=== PATIENT | female | born 1945 | race Asian ===

== ENCOUNTER 2019-06-23 07:34 | Observation (INO) | payer MEDICARE ==
[2019-06-23] MEDS: CEFAZOLIN 2 GM/50 ML (PMX) 50 ML IVPB (06:00)
[2019-06-23] MEDS: LACTATED RINGER'S 1,000 ML IV (08:39)
[2019-06-23] MEDS ORDERED: ACETAMINOPHEN 325 MG TAB PO (09:30)
[2019-06-23] MEDS ORDERED: DIPHENHYDRAMINE 50 MG INJ IV (09:30)
[2019-06-23] MEDS: CEFAZOLIN 1 GM/50 ML (PMX) 50 ML IVPB ×2 (09:30→16:51)
[2019-06-23] MEDS ORDERED: ONDANSETRON 4 MG INJ IV ×2 (09:30→11:00)
[2019-06-23] MEDS ORDERED: HYDROmorphONE 0.5 MG/0.5 ML SYG IV (09:30)
[2019-06-23] MEDS ORDERED: HYDROCODONE/APAP (5/325) TAB PO (09:30)
[2019-06-23] MEDS ORDERED: DIPHENHYDRAMINE 25 MG CAP PO (09:30)
[2019-06-23] MEDS ORDERED: NALOXONE (0.4 MG/ML) INJ IV (09:30)
[2019-06-23] MEDS ORDERED: MAGNESIUM HYDROXIDE 30ML CUP PO (09:30)
[2019-06-23] MEDS ORDERED: CEPASTAT LOZENGE MT (09:30)
[2019-06-23] MEDS ORDERED: BISACODYL 10 MG SUPP PR (09:30)
[2019-06-23] MEDS ORDERED: SODIUM CL BACTERIOSTATIC 30 ML INJ (09:32)
[2019-06-23] MEDS ORDERED: SEVOFLURANE 15 MIN (09:45)
[2019-06-23] MEDS ORDERED: MEPERIDINE 100 MG INJ (09:47)
[2019-06-23] MEDS ORDERED: LIDOCAINE 2% (SDV) 5 ML INJ (09:47)
[2019-06-23] MEDS ORDERED: PROPOFOL 20 ML (09:47)
[2019-06-23] MEDS ORDERED: GLYCOPYRROLATE 0.4 MG INJ ×2 (09:47→10:48)
[2019-06-23] MEDS ORDERED: NEOSTIGMINE 3 MG/3 ML SYRINGE (09:47)
[2019-06-23] MEDS ORDERED: ROCURONIUM 50 MG INJ (09:47)
[2019-06-23] MEDS ORDERED: SUCCINYLCHOLINE CHLORIDE 100 MG/5 ML SYG IV (09:47)
[2019-06-23] MEDS ORDERED: METOCLOPRAMIDE 10 MG INJ (10:46)
[2019-06-23] MEDS ORDERED: ONDANSETRON 4 MG INJ (10:46)
[2019-06-23] MEDS ORDERED: MEPERIDINE 25 MG INJ IV (11:00)
[2019-06-23] MEDS ORDERED: MIDAZOLAM 1 MG/ML 2 ML INJ IV (11:00)
[2019-06-23] MEDS ORDERED: METOCLOPRAMIDE 10 MG INJ IV (11:00)
[2019-06-23] MEDS ORDERED: LABETALOL HCL 20MG INJ IV (11:00)
[2019-06-23] MEDS ORDERED: EPHEDrine 25 MG/5 ML SYG IV (11:00)
[2019-06-23] MEDS ORDERED: FENTAnyl 50 MCG/ML VIAL IV (11:00)
[2019-06-23] MEDS ORDERED: HYDROmorphONE 1 MG/5 ML IV SYRINGE IV ×3 (11:00)
[2019-06-23] MEDS ORDERED: hydrALAzine 20 MG INJ IV (11:00)
[2019-06-23] MEDS: GELATIN SIZE 100 SPONGE (11:11)
[2019-06-23] MEDS: CA CHLORIDE 10% 10 ML SYRINGE (11:11)
[2019-06-23] MEDS: BUPIVACAINE 0.5%/EPI (SDV) 30 ML INJ (11:11)
[2019-06-23] MEDS: HEPARIN 1000 UNITS/ML 10 ML INJ (11:12)
[2019-06-23] MEDS: THROMBIN 5000 UNIT (RECOTHROM) VIAL ×2 (11:12→12:14)
[2019-06-23] MEDS: POLYMYXIN/BACITRACIN 1L IRRIG (11:12)
[2019-06-23] MEDS ORDERED: CEFAZOLIN 1 GM INJ (12:16)
[2019-06-23] MEDS ORDERED: NALOXONE (0.4 MG/ML) INJ (12:44)
[2019-06-23] MEDS: FENTAnyl 50 MCG/ML VIAL IV ×3 (13:00→13:13)
[2019-06-23] MEDS: DIPHENHYDRAMINE 50 MG INJ IV (13:27)
[2019-06-23] MEDS: D5W-0.45 NACL + KCL 20 MEQ 1,000 ML IV ×2 (15:02→18:54)
[2019-06-23] MEDS ORDERED: PREGABALIN 25 MG CAP PO (21:00)
[2019-06-23] MEDS: DOCUSATE SODIUM 100 MG CAP PO (21:32)
[2019-06-24] MEDS: CEFAZOLIN 1 GM/50 ML (PMX) 50 ML IVPB ×2 (01:30→01:40)
[2019-06-24] MEDS: D5W-0.45 NACL + KCL 20 MEQ 1,000 ML IV (03:20)
[2019-06-24 04:59] LABS: ADD MAN DIFF? NO
[2019-06-24 05:10] LABS: WHITE BLOOD COUNT 9.6 10^3/ul (4.8-10.8)
[2019-06-24 05:10] LABS: BASOPHILS % 0.3 % (0.0-2.0); EOSINOPHILS # 0.1 10^3/ul (0.0-0.5); EOSINOPHILS % 0.7 % (0.0-7.0); HEMATOCRIT 35.6 % (37.0-47.0); HEMOGLOBIN 11.5 g/dl (12.0-16.0); LYMPHOCYTES # 0.8 10^3/ul (0.8-2.9); LYMPHOCYTES % 8.6 % (15.0-51.0); MEAN CORPUSCULAR HEMOGLOBIN 30.1 pg (29.0-33.0); MEAN CORPUSCULAR HGB CONC 32.3 g/dl (32.0-37.0); MEAN CORPUSCULAR VOLUME 93.2 fl (82.0-101.0); MEAN PLATELET VOLUME 9.4 fl (7.4-10.4); MONOCYTE # 0.8 10^3/ul (0.3-0.9); MONOCYTES % 8.2 % (0.0-11.0); NEUTROPHIL # 7.8 10^3/ul (1.6-7.5); NEUTROPHILS % 81.9 % (39.0-77.0); PLATELET COUNT 156 10^3/UL (140-415); RED BLOOD COUNT 3.82 10^6/ul (4.20-5.40); RED CELL DISTRIBUTION WIDTH 12.2 % (11.5-14.5)
[2019-06-24 05:42] LABS: ANION GAP 5 (5-13); BLOOD UREA NITROGEN 9 mg/dl (7-20); CALCIUM 8.4 mg/dl (8.4-10.2); CARBON DIOXIDE 32 mmol/L (21-31); CHLORIDE 103 mmol/L (97-110); GLUCOSE 118 mg/dl (70-220); MAGNESIUM 1.8 mg/dl (1.7-2.5); POTASSIUM 3.7 mmol/L (3.5-5.1); SODIUM 140 mmol/L (135-144)
[2019-06-24] MEDS: HYDROCODONE/APAP (5/325) TAB PO ×2 (06:09→10:39)
[2019-06-24] MEDS: DOCUSATE SODIUM 100 MG CAP PO ×2 (09:00→09:02)
[2019-06-24] MEDS: PREGABALIN 50 MG CAP PO (09:02)
== END 2019-06-24 15:20 | disposition home or self-care (01) ==
LOC: REC 07:34 → MS1 18:45
DX: M51.16 Intervertebral disc disorders with radiculopathy, lumbar region (principal); Z98.1 Arthrodesis status
CPT/HCPCS: 63030; 72100; 80048; 83735; 85025; 86999; 88304; 97110; 97116; 97161; 97530; 99217